=== PATIENT | male | born 1975 | race Caucasian/White ===

== ENCOUNTER 2018-11-18 11:02 | Emergency (ER) | payer MEDICAID ==
[~2018-11-18] VITALS: Ht 177.8 cm; Wt 126.4 kg
[~2018-11-18 11:02] MED LIST: DOXY100T2 PO; HYDR-4383 PO; HYDR25TA4 PO; LISI-600 PO; OMEP20CA10 PO; ONDA8TAB9 PO
[2018-11-18 11:08] VITALS: BP 158/103
== END 2018-11-18 12:25 | disposition home or self-care (01) ==
LOC: ER 11:03
DX: S91.322D Laceration with foreign body, left foot, subsequent encounter (principal); I10 Essential (primary) hypertension; E11.9 Type 2 diabetes mellitus without complications; F12.90 Cannabis use, unspecified, uncomplicated; Z88.0 Allergy status to penicillin; Z98.890 Other specified postprocedural states; Z79.899 Other long term (current) drug therapy; W45.8XXD Other foreign body or object entering through skin, subsequent encounter
CPT/HCPCS: 99282

== ENCOUNTER 2019-04-08 15:29 | Emergency (ER) | payer MEDICAID ==
[~2019-04-08] VITALS: Ht 177.8 cm; Wt 118.2 kg
[~2019-04-08 15:29] MED LIST changes: -OMEP20CA10 PO; +OMEP20CA11 PO
[2019-04-08 15:35] VITALS: BP 133/88
== END 2019-04-08 16:36 | disposition home or self-care (01) ==
LOC: ER 15:29
DX: S92.512A Displaced fracture of proximal phalanx of left lesser toe(s), initial encounter for closed fracture (principal); I10 Essential (primary) hypertension; E11.9 Type 2 diabetes mellitus without complications; F12.90 Cannabis use, unspecified, uncomplicated; Z98.890 Other specified postprocedural states; Z88.0 Allergy status to penicillin; Z79.899 Other long term (current) drug therapy; W22.8XXA Striking against or struck by other objects, initial encounter; Y93.89 Activity, other specified; Y92.89 Other specified places as the place of occurrence of the external cause; Y99.8 Other external cause status
CPT/HCPCS: 28515; 73660; 99284

== ENCOUNTER 2020-03-25 20:01 | Emergency (ER) | payer MEDICAID ==
[~2020-03-25] VITALS: Ht 177.8 cm; Wt 127.2 kg
[~2020-03-25 20:01] MED LIST changes: -OMEP20CA11 PO; +OMEP20CA15 PO
[2020-03-25 20:06] VITALS: BP 179/103
[2020-03-25 20:43] LABS: BASOPHILS % (AUTO) 0.4 % (0-1); EOSINOPHILS # (AUTO) 0.4 X10'3 (0-0.9); EOSINOPHILS % (AUTO) 4.2 % (0-6); HEMATOCRIT 42.3 % (42.0-52.0); HEMOGLOBIN 14.1 g/dl (14.0-17.9); LYMPHOCYTES # (AUTO) 2.4 X10'3 (1.1-4.8); LYMPHOCYTES % (AUTO) 24.4 % (21-51); MEAN CORPUSCULAR HEMOGLOBIN 29.7 PG (27.0-31.0); MEAN CORPUSCULAR HGB CONC 33.3 g/dL (33.0-36.5); MEAN CORPUSCULAR VOLUME 89.1 FL (78-98); MONOCYTES # (AUTO) 0.7 X10'3 (0-0.9); MONOCYTES % (AUTO) 6.9 % (2-12); NEUTROPHILS # (AUTO) 6.2 X10'3 (1.8-7.7); NEUTROPHILS % (AUTO) 64.1 % (42-75); PLATELET COUNT 218 X10'3 (140-440); RED BLOOD COUNT 4.75 X10'6 (4.70-6.10); RED CELL DISTRIBUTION WIDTH 13.4 % (11.5-14.5); WHITE BLOOD COUNT 9.7 X10'3 (4.5-11.0)
[2020-03-25 20:54] LABS: ALANINE AMINOTRANSFERASE 87 U/L (12-78); ALBUMIN 3.7 G/DL (3.4-5.0); ALKALINE PHOSPHATASE 89 IU/L (46-116); ANION GAP 10 (8-16); ASPARTATE AMINO TRANSFERASE 43 U/L (10-37); BILIRUBIN,TOTAL 0.3 MG/DL (0.1-1.0); BLOOD UREA NITROGEN 16 MG/DL (7-18); BUN/CREATININE RATIO 12.6 (5.4-32.0); CALCIUM 9.3 MG/DL (8.5-10.1); CHLORIDE 104 MMOL/L (99-107); CREATININE 1.27 MG/DL (0.60-1.10); GLUCOSE 183 MG/DL (70-104); POTASSIUM 3.8 MMOL/L (3.5-5.1); SODIUM 143 MMOL/L (135-145); TOTAL CARBON DIOXIDE 28.8 MMOL/L (24-32); TOTAL PROTEIN 7.4 G/DL (6.4-8.2); eGFR 61 ML/MIN
[2020-03-25] MEDS ORDERED: sucralfate 1gm/10ml UD suspension PO STA (21:06)
[2020-03-25] MEDS ORDERED: mag hydrox/Alum hydrox/simeth 30ml oral suspension PO ONE (21:10)
[2020-03-25] MEDS ORDERED: LIDOcaine Viscous 15ml cup MM ONE (21:10)
[2020-03-25] MEDS ORDERED: SUCR1TAB34 PO (21:41)
[2020-03-25] MEDS ORDERED: OMEP40CA13 PO (21:41)
== END 2020-03-25 22:09 | disposition home or self-care (01) ==
LOC: ER 20:02
DX: R07.89 Other chest pain (principal); K21.9 Gastro-esophageal reflux disease without esophagitis; R12 Heartburn; I10 Essential (primary) hypertension; E11.9 Type 2 diabetes mellitus without complications; F12.90 Cannabis use, unspecified, uncomplicated; Z98.890 Other specified postprocedural states; Z88.0 Allergy status to penicillin; Z79.899 Other long term (current) drug therapy
CPT/HCPCS: 36415; 71045; 80053; 84484; 85025; 93005; 99285

== ENCOUNTER 2023-06-15 18:55 | Emergency (ER) | payer MEDICAID ==
[~2023-06-15] VITALS: Ht 177.8 cm; Wt 113.6 kg
[~2023-06-15 18:55] MED LIST changes: -LISI-600 PO; +LISI20TA28 PO; +SUCR1TAB34 PO
[2023-06-15 19:14] VITALS: TEMP 98.5
[2023-06-15 19:32] LABS: BASOPHILS % (AUTO) 0.3 % (0-1); EOSINOPHILS # (AUTO) 0.2 X10'3 (0-0.9); EOSINOPHILS % (AUTO) 2.9 % (0-6); HEMOGLOBIN 14.8 g/dl (14.0-17.9); LYMPHOCYTES # (AUTO) 2.2 X10'3 (1.1-4.8); LYMPHOCYTES % (AUTO) 38.9 % (21-51); MEAN CORPUSCULAR HEMOGLOBIN 29.2 PG (27.0-31.0); MEAN CORPUSCULAR HGB CONC 33.7 g/dL (33.0-36.5); MEAN CORPUSCULAR VOLUME 86.7 FL (78-98); MEAN PLATELET VOLUME 8.4 FL (7.4-10.4); MONOCYTES # (AUTO) 0.4 X10'3 (0-0.9); MONOCYTES % (AUTO) 7.1 % (2-12); NEUTROPHILS # (AUTO) 2.9 X10'3 (1.8-7.7); NEUTROPHILS % (AUTO) 50.8 % (42-75); PLATELET COUNT 221 X10'3 (140-440); RED BLOOD COUNT 5.07 X10'6 (4.70-6.10); RED CELL DISTRIBUTION WIDTH 13.4 % (11.5-14.5); WHITE BLOOD COUNT 5.6 X10'3 (4.5-11.0)
[2023-06-15 19:39] LABS: ALANINE AMINOTRANSFERASE 42 U/L (12-78); ALBUMIN 3.9 G/DL (3.4-5.0); ALKALINE PHOSPHATASE 146 IU/L (46-116); ANION GAP 10 (8-16); ASPARTATE AMINO TRANSFERASE 18 U/L (10-37); BILIRUBIN,TOTAL 0.4 MG/DL (0.1-1.0); BLOOD UREA NITROGEN 14 MG/DL (7-18); CALCIUM 9.3 MG/DL (8.5-10.1); CHLORIDE 104 MMOL/L (99-107); GLUCOSE 251 MG/DL (70-104); POTASSIUM 3.5 MMOL/L (3.5-5.1); SODIUM 140 MMOL/L (135-145); TOTAL CARBON DIOXIDE 26.2 MMOL/L (24-32); TOTAL PROTEIN 7.8 G/DL (6.4-8.2); eCRCL 93 ML/MIN; eGFR 80 ML/MIN
[2023-06-15 19:46] LABS: PRO BRAIN NATRIURETIC PEPTIDE 31 PG/ML (0-125)
[2023-06-15 20:19] LABS: D-DIMER < 0.19 MG/L FEU (0-0.50)
[2023-06-15] MEDS ORDERED: normal saline 1000ml 1,000 ML IV ONE (20:35)
[2023-06-15] MEDS ORDERED: insulin regular, human 10 units/0.1 ml syringe IV ONE (20:35)
[2023-06-15 21:51] VITALS: BP 145/83; PULSE 75; RESP 14; O2SAT 98
== END 2023-06-15 21:52 | disposition home or self-care (01) ==
LOC: ER 18:56
DX: R00.2 Palpitations (principal); I10 Essential (primary) hypertension; E11.9 Type 2 diabetes mellitus without complications; F12.90 Cannabis use, unspecified, uncomplicated; Z88.0 Allergy status to penicillin; Z79.2 Long term (current) use of antibiotics; Z79.899 Other long term (current) drug therapy
CPT/HCPCS: 36415; 71045; 80053; 82948; 83880; 84484; 85025; 85379; 93005; 96361; 96374; 99285; J1815; J7030

== ENCOUNTER 2023-12-31 12:10 | Emergency (ER) | payer MEDICAID ==
[~2023-12-31] VITALS: Ht 177.8 cm; Wt 91.4 kg
[2023-12-31 12:59] LABS: BILIRUBIN,URINE NEGATIVE (Neg); CLARITY,URINE CLEAR (Clear); COLOR,URINE YELLOW (Yellow); GLUCOSE, URINE >=1000 mg/dl (Neg); KETONES,URINE NEGATIVE (Neg); LEUKOCYTE ESTERASE ,URINE NEGATIVE (Neg); NITRITES, URINE NEGATIVE (Neg); OCCULT BLOOD,URINE NEGATIVE (Neg); PROTEIN,URINE NEGATIVE (Neg); UA COLLECTION TYPE CLN CATCH MIDSTREAM; UROBILINOGEN,URINE 0.2 E.U/dL (0.2-1.0)
[2023-12-31 13:01] LABS: BASOPHILS % (AUTO) 0.4 % (0-1); EOSINOPHILS # (AUTO) 0.2 X10'3 (0-0.9); HEMATOCRIT 48.1 % (42.0-52.0); HEMOGLOBIN 15.9 g/dl (14.0-17.9); LYMPHOCYTES # (AUTO) 1.9 X10'3 (1.1-4.8); LYMPHOCYTES % (AUTO) 31.2 % (21-51); MEAN CORPUSCULAR HEMOGLOBIN 28.2 PG (27.0-31.0); MEAN CORPUSCULAR VOLUME 85.6 FL (78-98); MEAN PLATELET VOLUME 8.2 FL (7.4-10.4); MONOCYTES # (AUTO) 0.3 X10'3 (0-0.9); MONOCYTES % (AUTO) 5.7 % (2-12); NEUTROPHILS # (AUTO) 3.6 X10'3 (1.8-7.7); NEUTROPHILS % (AUTO) 59.7 % (42-75); PLATELET COUNT 210 X10'3 (140-440); RED BLOOD COUNT 5.62 X10'6 (4.70-6.10); RED CELL DISTRIBUTION WIDTH 13.3 % (11.5-14.5); WHITE BLOOD COUNT 5.9 X10'3 (4.5-11.0)
[2023-12-31] MEDS: normal saline 1000ML IV soln IVB ONE (13:02)
[2023-12-31 13:04] LABS: SQUAMOUS EPITHELIAL CELL,UR FEW /LPF (FEW)
[2023-12-31 13:05] LABS: BACTERIA,URINE NONE SEEN /HPF (Neg); RBC,URINE 0-2 /HPF (0-2); WBC,URINE 0-4 /HPF (0-4)
[2023-12-31 13:36] LABS: ALBUMIN 3.7 G/DL (3.4-5.0); ALBUMIN/GLOBULIN RATIO 0.9 (1.1-1.5); ALKALINE PHOSPHATASE 115 IU/L (46-116); BILIRUBIN,DIRECT 0.2 MG/DL (0-0.3); LIPASE 55 U/L (16-77)
[2023-12-31 13:58] LABS: ALANINE AMINOTRANSFERASE 45 U/L (12-78); ANION GAP 10 (8-16); ASPARTATE AMINO TRANSFERASE 24 U/L (10-37); BILIRUBIN,TOTAL 0.6 MG/DL (0.1-1.0); BLOOD UREA NITROGEN 14 MG/DL (7-18); BUN/CREATININE RATIO 12.8 (10.0-20.0); CALCIUM 8.9 MG/DL (8.5-10.1); CHLORIDE 102 MMOL/L (99-107); CREATININE 1.09 MG/DL (0.60-1.10); GLUCOSE 285 MG/DL (70-104); POTASSIUM 3.7 MMOL/L (3.5-5.1); SODIUM 139 MMOL/L (135-145); TOTAL CARBON DIOXIDE 26.9 MMOL/L (24-32); eCRCL 85 ML/MIN; eGFR 72 ML/MIN
[2023-12-31] MEDS ORDERED: iohexol 350MG/ML 100ml bottle IV ONE (14:13)
[2023-12-31 16:21] VITALS: BP 186/122; PULSE 71; RESP 17; TEMP 98; O2SAT 97
== END 2023-12-31 16:24 | disposition home or self-care (01) ==
LOC: ER 12:11
DX: K59.00 Constipation, unspecified (principal); R10.9 Unspecified abdominal pain; I10 Essential (primary) hypertension; E11.9 Type 2 diabetes mellitus without complications; F12.90 Cannabis use, unspecified, uncomplicated; Z88.0 Allergy status to penicillin; Z79.2 Long term (current) use of antibiotics; Z79.899 Other long term (current) drug therapy
CPT/HCPCS: 36415; 74178; 80048; 80076; 81001; 83690; 85025; 96360; 99285; J3490; J7030; Q9967

== ENCOUNTER 2024-01-21 17:25 | Inpatient (IN) | payer MEDICAID ==
[~2024-01-21] VITALS: Ht 177.8 cm; Wt 112.8 kg
[2024-01-21 18:05] LABS: BASOPHILS % (AUTO) 0.5 % (0-1); EOSINOPHILS # (AUTO) 0.1 X10'3 (0-0.9); EOSINOPHILS % (AUTO) 2.7 % (0-6); HEMOGLOBIN 15.6 g/dl (14.0-17.9); LYMPHOCYTES % (AUTO) 35.6 % (21-51); MEAN CORPUSCULAR HEMOGLOBIN 28.8 PG (27.0-31.0); MEAN CORPUSCULAR HGB CONC 33.2 g/dL (33.0-36.5); MEAN CORPUSCULAR VOLUME 86.7 FL (78-98); MEAN PLATELET VOLUME 8.5 FL (7.4-10.4); MONOCYTES # (AUTO) 0.4 X10'3 (0-0.9); NEUTROPHILS # (AUTO) 2.9 X10'3 (1.8-7.7); NEUTROPHILS % (AUTO) 53.2 % (42-75); PLATELET COUNT 231 X10'3 (140-440); RED BLOOD COUNT 5.42 X10'6 (4.70-6.10); RED CELL DISTRIBUTION WIDTH 13.4 % (11.5-14.5); WHITE BLOOD COUNT 5.5 X10'3 (4.5-11.0)
[2024-01-21 18:24] LABS: ALANINE AMINOTRANSFERASE 36 U/L (12-78); ALBUMIN 3.7 G/DL (3.4-5.0); ALBUMIN/GLOBULIN RATIO 0.9 (1.1-1.5); ALKALINE PHOSPHATASE 95 IU/L (46-116); ANION GAP 11 (8-16); ASPARTATE AMINO TRANSFERASE 19 U/L (10-37); BILIRUBIN,TOTAL 0.6 MG/DL (0.1-1.0); BLOOD UREA NITROGEN 14 MG/DL (7-18); BUN/CREATININE RATIO 15.9 (10.0-20.0); CALCIUM 9.3 MG/DL (8.5-10.1); CHLORIDE 105 MMOL/L (99-107); CREATININE 0.88 MG/DL (0.60-1.10); GLUCOSE 155 MG/DL (70-104); POTASSIUM 3.6 MMOL/L (3.5-5.1); SODIUM 142 MMOL/L (135-145); TOTAL CARBON DIOXIDE 26.4 MMOL/L (24-32); TOTAL PROTEIN 7.9 G/DL (6.4-8.2); eCRCL 105 ML/MIN; eGFR > 90 ML/MIN
[2024-01-21 18:35] LABS: PRO BRAIN NATRIURETIC PEPTIDE 255 PG/ML (0-125)
[2024-01-21] MEDS: aspirin 325mg tablet PO ONE (18:53)
[2024-01-21] MEDS ORDERED: magnesium 2GM in 50ml NS 50 ML IV PRN (23:25)
[2024-01-21] MEDS ORDERED: magnesium hydroxide 30ml (MOM) UD suspension PO PRN (23:25)
[2024-01-21] MEDS ORDERED: potassium Cl 20 mEq SR tablet PO PRN ×2 (23:25)
[2024-01-21] MEDS ORDERED: mag hydrox/Alum hydrox/simeth 30ml oral suspension PO PRN (23:25)
[2024-01-21] MEDS ORDERED: potassium Cl 40MEQ/1/2NS 520ml 520 ML IV PRN (23:25)
[2024-01-21] MEDS ORDERED: ondansetron/PF 4mg/2ml inj IV PRN (23:25)
[2024-01-21] MEDS ORDERED: acetaminophen 325mg tablet PO PRN (23:25)
[2024-01-21] MEDS ORDERED: magnesium Cl slow-release 64mg tablet PO PRN (23:25)
[2024-01-21] MEDS ORDERED: magnesium 4gm in 100ml NS 100 ML IV PRN (23:25)
[2024-01-22 05:28] VITALS: BP 165/104; PULSE 73; RESP 16; TEMP 98.3; O2SAT 96
[2024-01-22 05:51] VITALS: BP 142/88
[2024-01-22 06:00] LABS: BASOPHILS % (AUTO) 0.3 % (0-1); EOSINOPHILS # (AUTO) 0.3 X10'3 (0-0.9); EOSINOPHILS % (AUTO) 3.9 % (0-6); HEMATOCRIT 45.9 % (42.0-52.0); HEMOGLOBIN 15.4 g/dl (14.0-17.9); LYMPHOCYTES % (AUTO) 31.4 % (21-51); MEAN CORPUSCULAR HEMOGLOBIN 28.9 PG (27.0-31.0); MEAN CORPUSCULAR HGB CONC 33.6 g/dL (33.0-36.5); MEAN PLATELET VOLUME 8.3 FL (7.4-10.4); MONOCYTES # (AUTO) 0.6 X10'3 (0-0.9); MONOCYTES % (AUTO) 9.3 % (2-12); NEUTROPHILS # (AUTO) 3.5 X10'3 (1.8-7.7); NEUTROPHILS % (AUTO) 55.1 % (42-75); PLATELET COUNT 214 X10'3 (140-440); RED BLOOD COUNT 5.34 X10'6 (4.70-6.10); RED CELL DISTRIBUTION WIDTH 13.5 % (11.5-14.5); WHITE BLOOD COUNT 6.4 X10'3 (4.5-11.0)
[2024-01-22 06:08] LABS: ALANINE AMINOTRANSFERASE 42 U/L (12-78); ALBUMIN 3.6 G/DL (3.4-5.0); ALBUMIN/GLOBULIN RATIO 0.9 (1.1-1.5); ALKALINE PHOSPHATASE 93 IU/L (46-116); ANION GAP 11 (8-16); ASPARTATE AMINO TRANSFERASE 26 U/L (10-37); BILIRUBIN,TOTAL 0.5 MG/DL (0.1-1.0); BLOOD UREA NITROGEN 15 MG/DL (7-18); BUN/CREATININE RATIO 14.7 (10.0-20.0); CALCIUM 8.9 MG/DL (8.5-10.1); CHLORIDE 105 MMOL/L (99-107); CREATININE 1.02 MG/DL (0.60-1.10); GLUCOSE 161 MG/DL (70-104); MAGNESIUM 2.1 MG/DL (1.5-2.4); PHOSPHORUS 4.6 MG/DL (2.3-4.5); SODIUM 142 MMOL/L (135-145); TOTAL CARBON DIOXIDE 26.3 MMOL/L (24-32); TOTAL PROTEIN 7.7 G/DL (6.4-8.2); eCRCL 90 ML/MIN; eGFR 78 ML/MIN
[2024-01-22 06:16] LABS: POTASSIUM 3.9 MMOL/L (3.5-5.1)
[2024-01-22] MEDS: heparin, porcine 5000 units/ml vial SQ SCH (08:00)
[2024-01-22] MEDS: K and/or MAG REPLACEMENT MC SCH (08:00)
[2024-01-22] MEDS: docusate sod 100mg capsule PO SCH (08:00)
[2024-01-22 08:24] LABS: THYROID STIMULATING HORMONE 1.16 ulU/ml (0.34-4.50)
[2024-01-22 09:27] VITALS: BP_SYST 140; PULSE 72
[2024-01-22] MEDS: lisinopril 20mg tablet PO SCH (09:27)
[2024-01-22] MEDS: atorvastatin 20mg tablet PO SCH (09:27)
[2024-01-22] MEDS: HYDROchlorothiazide 25mg tablet PO SCH (09:27)
[2024-01-22] MEDS ORDERED: METF-436 PO ×2 (09:32)
[2024-01-22] MEDS ORDERED: EMPA25TA PO (12:25)
[2024-01-22] MEDS ORDERED: SEMA1PEN3 SUBCUT (12:25)
== END 2024-01-22 15:45 | disposition home or self-care (01) | DRG 201 ==
LOC: ER 17:27 → UNDOADMOB 23:28 → ED HOLD 23:28 → OBSVTOIN 23:58 → ED HOLD 23:58 → EDBEDREQ 01-22 04:31 → ED HOLD 01-22 05:15 → PCU 3S 01-22 05:15
PROVIDERS: ADMIT Student in an Organized Health Care Education/Training Program; ATTEND Internal Medicine
DX: I48.0 Paroxysmal atrial fibrillation (principal); I11.0 Hypertensive heart disease with heart failure; I50.9 Heart failure, unspecified; E11.9 Type 2 diabetes mellitus without complications; G47.33 Obstructive sleep apnea (adult) (pediatric); K21.9 Gastro-esophageal reflux disease without esophagitis; E78.00 Pure hypercholesterolemia, unspecified; Z79.899 Other long term (current) drug therapy
CPT/HCPCS: 36415; 71045; 80053; 83735; 83880; 84100; 84443; 84484; 85025; 87081; 93005; 99285; G0378; J1644

== ENCOUNTER 2024-08-14 16:10 | Emergency (ER) | payer MEDICAID ==
[~2024-08-14] VITALS: Ht 177.8 cm; Wt 109.0 kg
[~2024-08-14 16:10] MED LIST changes: -DOXY100T2 PO; +EMPA25TA PO; -HYDR-4383 PO; +METF-436 PO; -ONDA8TAB9 PO; +SEMA1PEN3 SUBCUT
[2024-08-14 17:04] LABS: ALBUMIN 3.8 G/DL (3.4-5.0); ANION GAP 5 (8-16); BLOOD UREA NITROGEN 16 MG/DL (7-18); BUN/CREATININE RATIO 12.5 (10.0-20.0); CALCIUM 8.8 MG/DL (8.5-10.1); CHLORIDE 104 MMOL/L (99-107); CREATININE 1.28 MG/DL (0.60-1.10); GLUCOSE 136 MG/DL (70-104); POTASSIUM 3.7 MMOL/L (3.5-5.1); SODIUM 138 MMOL/L (135-145); TOTAL CARBON DIOXIDE 29.2 MMOL/L (24-32); eCRCL 72 ML/MIN; eGFR 60 ML/MIN
[2024-08-14 17:08] LABS: APTT 27 SECONDS (22-32); PROTHROMBIN TIME 10.2 SECONDS (9.0-12.0)
[2024-08-14 17:09] LABS: BASOPHILS % (AUTO) 0.2 % (0-1); EOSINOPHILS # (AUTO) 0.1 X10'3 (0-0.9); EOSINOPHILS % (AUTO) 1.8 % (0-6); HEMATOCRIT 43.4 % (42.0-52.0); HEMOGLOBIN 14.2 g/dl (14.0-17.9); LYMPHOCYTES % (AUTO) 27.7 % (21-51); MEAN CORPUSCULAR HEMOGLOBIN 28.4 PG (27.0-31.0); MEAN CORPUSCULAR HGB CONC 32.8 g/dL (33.0-36.5); MEAN CORPUSCULAR VOLUME 86.5 FL (78-98); MEAN PLATELET VOLUME 7.6 FL (7.4-10.4); MONOCYTES # (AUTO) 0.5 X10'3 (0-0.9); MONOCYTES % (AUTO) 6.4 % (2-12); NEUTROPHILS # (AUTO) 4.6 X10'3 (1.8-7.7); NEUTROPHILS % (AUTO) 63.9 % (42-75); PLATELET COUNT 253 X10'3 (140-440); RED BLOOD COUNT 5.02 X10'6 (4.70-6.10); RED CELL DISTRIBUTION WIDTH 13.4 % (11.5-14.5); WHITE BLOOD COUNT 7.1 X10'3 (4.5-11.0)
[2024-08-14] MEDS ORDERED: valacyclovir 500mg tablet PO SCH (17:10)
[2024-08-14] MEDS ORDERED: prednisone 10mg tablet PO SCH (17:15)
[2024-08-14] MEDS ORDERED: VALA100031 PO (17:16)
[2024-08-14] MEDS ORDERED: PRED20TA PO (17:16)
[2024-08-14] MEDS: prednisone 10mg tablet PO ONE (18:00)
[2024-08-14] MEDS: valacyclovir 500mg tablet PO ONE (18:01)
[2024-08-14 18:08] VITALS: BP 145/94; PULSE 62; RESP 14; TEMP 98.1; O2SAT 95
== END 2024-08-14 18:10 | disposition home or self-care (01) ==
LOC: ER 16:11
DX: G51.0 Bell's palsy (principal); E78.00 Pure hypercholesterolemia, unspecified; I10 Essential (primary) hypertension; E11.9 Type 2 diabetes mellitus without complications; M19.90 Unspecified osteoarthritis, unspecified site; F12.90 Cannabis use, unspecified, uncomplicated; R79.1 Abnormal coagulation profile; Z88.0 Allergy status to penicillin; Z79.899 Other long term (current) drug therapy
CPT/HCPCS: 36415; 70450; 71045; 80048; 85025; 85610; 85730; 86885; 86900; 86901; 93005; 99285; J7512

== ENCOUNTER 2025-07-28 10:28 | Outpatient (CLI) | payer MEDICAID ==
[~2025-07-28 10:28] MED LIST changes: +VALA100031 PO
[2025-07-28 11:09] LABS: MEAN PLATELET VOLUME 8.1 FL (7.4-10.4); RED CELL DISTRIBUTION WIDTH 14.0 % (11.5-14.5)
[2025-07-28 11:44] LABS: APTT 28 SECONDS (22-32); INR 1.0 INR
[2025-07-28 11:55] LABS: CHOL/HDL RATIO 4.1 (0.00-4.99); CREATININE 0.91 MG/DL (0.60-1.10); LDL CHOLESTEROL 119 MG/DL (50-100); TOTAL CARBON DIOXIDE 28.1 MMOL/L (24-32); eGFR 88 ML/MIN
== END 2025-07-28 23:59 | disposition home or self-care (01) ==
LOC: LAB 10:28 → EDSTATUS 08-01 15:30
PROVIDERS: ATTEND Student in an Organized Health Care Education/Training Program
DX: Z01.818 Encounter for other preprocedural examination (principal); I48.91 Unspecified atrial fibrillation; I10 Essential (primary) hypertension; E78.5 Hyperlipidemia, unspecified
CPT/HCPCS: 36415; 80048; 80061; 85025; 85610; 85730

== ENCOUNTER 2025-08-29 10:10 | Day surgery (SDC) | payer MEDICAID ==
[2025-08-23 10:03] LABS: MEAN PLATELET VOLUME 7.8 FL (7.4-10.4); RED CELL DISTRIBUTION WIDTH 13.2 % (11.5-14.5)
[2025-08-23 10:13] LABS: CREATININE 0.84 MG/DL (0.60-1.10); TOTAL CARBON DIOXIDE 27.4 MMOL/L (24-32); eGFR > 90 ML/MIN
[2025-08-23 10:17] LABS: APTT 29 SECONDS (22-32); INR 1.0 INR
[~2025-08-29] VITALS: Ht 177.8 cm; Wt 110.3 kg
[~2025-08-29 10:10] MED LIST changes: +AMLO1CAP10 PO; +APIX5TAB3 PO; -EMPA25TA PO; +METF-1203 PO; -METF-436 PO; +METF-900 PO; -SEMA1PEN3 SUBCUT; +SOTA80TA73 PO; -SUCR1TAB34 PO; -VALA100031 PO
[2025-08-29 10:30] VITALS: BP 147/111; PULSE 86; RESP 15; TEMP 97.9
[2025-08-29] MEDS ORDERED: MIDAZolam 1mg/ml 10ml vial IV ONE (10:35)
[2025-08-29] MEDS: normal saline 1000ml 1,000 ML IV SCH (10:35)
[2025-08-29] MEDS ORDERED: fentaNYL/PF 50MCG/1 ML 2ML syringe IV ONE (10:35)
[2025-08-29 11:00] VITALS: RESP 15; O2SAT 96
[2025-08-29] MEDS ORDERED: fentaNYL/PF 50MCG/1 ML 2ML syringe ONE (12:17)
[2025-08-29] MEDS ORDERED: midazolam 1 mg/ML 2ml injection ONE ×2 (12:17→12:42)
[2025-08-29] MEDS ORDERED: atropine 0.1mg/ml 10ml syringe ONE (12:17)
[2025-08-29] MEDS ORDERED: amiodarone 50MG/ML inj IV ONE (12:17)
[2025-08-29 13:10] VITALS: BP 118/85; PULSE 68; RESP 13; O2SAT 95
[2025-08-29 13:20] VITALS: BP 119/88; PULSE 67; RESP 15; O2SAT 95
--- NOTE | 2025-08-29 13:26 | ELECTROCARDIOGRAPH REPORT ---
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 ANGELINE Ford Measurements Intervals [place] Rate: 63 P: -21 HI: 169 QRS: -62 QRSD: 104 T: -8 QT: 422 QTc: 433 Interpretive Statements Sinus rhythm Left anterior fascicular block Abnormal R-wave progression, late transition Borderline T abnormalities, inferior leads Electronically Signed On 08-29-2025 17:33:[address] ANGELINE Ford Please click the below link to view image of tracing.
[2025-08-29 13:40] VITALS: BP 120/84; PULSE 65; RESP 15; O2SAT 94
--- NOTE | 2025-09-10 20:34 | CARDIOLOGY REPORT ---
DATE OF SERVICE: 08/29/2025 DICTATING PHYSICIAN: Benedicto Cintron MD DATE OF STUDY: 08/29/2025 NAME OF STUDY: Electrical cardioversion. PROCEDURE: The patient was brought to cardiac short stay where she was prepped in the usual manner. After gradual increments of Versed and fentanyl, and conscious sedation was obtained, the patient was cardioverted. The patient remained clinically and hemodynamically stable throughout the procedure. IMPRESSION: Successful electrical cardioversion to normal sinus rhythm without complication. Benedicto Cintron MD TID: [id number] RECEIPT: [id number] VICTOR M/ERICKA
== END 2025-08-29 13:40 | disposition home or self-care (01) ==
LOC: SSTAY O 10:10
PROVIDERS: ATTEND Student in an Organized Health Care Education/Training Program
DX: I48.91 Unspecified atrial fibrillation (principal); I44.4 Left anterior fascicular block; R94.31 Abnormal electrocardiogram [ECG] [EKG]; I10 Essential (primary) hypertension; E11.9 Type 2 diabetes mellitus without complications; E78.00 Pure hypercholesterolemia, unspecified; Z79.01 Long term (current) use of anticoagulants; Z79.899 Other long term (current) drug therapy; Z88.0 Allergy status to penicillin
CPT/HCPCS: 36415; 80048; 85025; 85610; 85730; 92960; 93005; 99152; J2250; J3010; J7030; J0282; J0461

== ENCOUNTER 2025-09-04 08:18 | Emergency (ER) | payer MEDICAID ==
[~2025-09-04] VITALS: Ht 177.8 cm; Wt 110.3 kg
[2025-09-04 08:37] LABS: MEAN PLATELET VOLUME 8.2 FL (7.4-10.4); RED CELL DISTRIBUTION WIDTH 13.0 % (11.5-14.5)
--- NOTE | 2025-09-04 08:49 | Physician Documentation ---
History of Present Illness ~ Chief Complaint: Chest Pain Stated Complaint: CP Time Seen by MD: 08:48 Primary Medical Doctor: Suzy Hernandez PA-C Mode of Arrival: Wheelchair HPI 49-year-old male presenting with chest pain and vomiting He tells me that he has been having episodes of intermittent vertigo that seems triggered by certain positions including head movements. He also has a history of paroxysmal atrial fibrillation and was recently cardioverted. He says that he woke up this morning with nausea and vomiting. He has had multiple episodes of vomiting. He reports that he had pain in his upper abdomen and lower central chest. He does take Prilosec. He also reports having diarrhea but states this is chronic and unchanged No fevers or chills. No current chest pain. No significant shortness of breath or productive cough. No new leg pain or swelling. He came in today because during his episodes of vomiting and dizziness, he felt like his heart was racing and was worried that he was having a heart attack or other heart problem. Medication Reconciliation Allergies: Coded Allergies: Penicillins (Verified Allergy, Unknown, 08/14/24) Scheduled Amlodipine Besylate/Benazepril (Amlodipine-Benazepril 10-20 Mg), 1 TAB PO DAILY, (Reported) Apixaban (Eliquis), 1 TAB PO BID, (Reported) Hydrochlorothiazide (Hydrochlorothiazide), 1 TAB PO DAILY, (Reported) Lisinopril (Lisinopril), 1 TAB PO DAILY, (Reported) Metformin HCl (Metformin HCl), 2 TAB PO am, (Reported) Metformin Hcl* (Metformin ER*), 1 TAB PO Evening, (Reported) Omeprazole (Omeprazole), 1 CAP PO DAILY, (Reported) Sotalol Hcl* (Betapace*), 1 TAB PO BID, (Reported) Scheduled PRN Meclizine HCl (Meclizine HCl), 1 TAB PO Q8H PRN for dizziness/vertigo ONDANSETRON ODT 4mg tablet (Ondansetron Odt), 1 TAB PO Q6H PRN PRN for nausea/vomiting Discontinued Medications Empagliflozin (Jardiance), 1 TAB PO DAILY Discontinued Reason: patient no longer taking Metformin Hcl (Metformin Hcl), 1,000 MG PO DAILY Discontinued Reason: patient no longer taking Metformin Hcl (Metformin Hcl), 500 MG PO HS Discontinued Reason: patient no longer taking Semaglutide (Ozempic), 1 MG SUBCUT Q7D Discontinued Reason: patient no longer taking Sucralfate (Carafate), 1 TAB PO ACHS Discontinued Reason: patient no longer taking Valacyclovir HCl (Valacyclovir), 1 TABLET PO TID Discontinued Reason: patient no longer taking Past Medical History Past Medical History: High Cholesterol, Hypertension, Diabetes, Osteoarthritis Past Surgical History: orthopedic surgeries Alcohol Use: None Drug Use: marijuana Lives with: Family Lives In: Home Occupation: employed Review of Systems Constitutional: Denies: fever Cardiovascular: Reports: chest pain Gastrointestinal: Reports: abdominal pain, nausea, vomiting, diarrhea Physical Exam Vital Signs: Source: Oral, Heart Rate: 80, Respiratory Rate: 20, BP: 130/77, Pulse Oximetry: 94, Weight: 110.300 Oxygen Flow Rate: 0 Physical Exam General: This is a pleasant and overall well-appearing young man, family at bedside HEENT: Atraumatic, oropharynx is moist Heart: Regular rate and rhythm, appears sinus rhythm on the monitor, strong lef t radial pulse Lungs: Clear breath sounds bilateral, normal work of breathing, normal oxygen saturation on room air Abdomen: Soft, nondistended, mild discomfort on palpation in the epigastric region, otherwise nontender, no rebound or guarding Extremities: Warm and well-perfused, no significant edema or calf tenderness Neuro: Alert and oriented Psychiatric: Calm and cooperative with exam Progress Results/Orders Results/Orders Orders - RAFAEL GRIGSBY MD Chest,Single View (09/04/25 08:21) Monitor (09/04/25 08:21) Saline Lock (09/04/25 08:21) Oxygen (09/04/25 08:21) General Nursing Order (09/04/25 ) Completed Orders - RAFAEL GRIGSBY MD Chest,Single View (09/04/25 08:21) Cbc/Diff (09/04/25 08:21) PBNP (09/04/25 08:21) Electrocardiogram (09/04/25 08:21) Hs Troponin I W Calculations (09/04/25 08:21) Hs Troponin I W Calculations (09/04/25 10:21) CMP (09/04/25 08:21) Ondansetron Inj. (Zofran 4mg/2ml Vial) (09/04/25 09:00) Normal Saline 1000ml (0.9% Sodium Chlori (09/04/25 09:00) Mag & Alum Hydrox/Simeth Susp (Maalox Or (09/04/25 09:00) Pantoprazole 40mg Iv (Protonix 40mg Iv) (09/04/25 09:00) Lipase (09/04/25 08:27) Vital Signs 09/04/25 09/04/25 09/04/25 09/04/25 08:21 08:28 08:30 10:24 Pulse 89 80 90 Resp 20 16 20 20 B/P (MAP) 136/99 130/77 (94) 133/74 (93) Pulse Ox 95 94 97 O2 Flow Rate 0 0 0 09/04/25 11:08 Temp 97.9 Resp 15 B/P (MAP) 151/87 Pulse Ox 95 Laboratory Tests Test 09/04/25 08:27 09/04/25 10:11 White Blood Count 11.1 H Red Blood Count 5.86 Hemoglobin 16.8 Hematocrit 50.0 Mean Corpuscular Volume 85.3 Mean Corpuscular Hemoglobin 28.7 Mean Corpuscular Hemoglobin Concent 33.7 Red Cell Distribution Width 13.0 Platelet Count 244 Mean Platelet Volume 8.2 Neutrophils (%) (Auto) 87.5 H Lymphocytes (%) (Auto) 7.6 L Monocytes (%) (Auto) 3.6 Eosinophils (%) (Auto) 1.1 Basophils (%) (Auto) 0.2 Neutrophils # (Auto) 9.7 H Lymphocytes # (Auto) 0.8 L Monocytes # (Auto) 0.4 Eosinophils # (Auto) 0.1 Basophils # (Auto) 0.0 CBC Comment Sodium Level 139 Potassium Level 4.3 Chloride Level 105 Carbon Dioxide Level 22.0 L Anion Gap 12 Blood Urea Nitrogen 20 H Creatinine 0.95 Estimated GFR/1.73 m2 84 BUN/Creatinine Ratio 21.1 H Glucose Level 215 H Calcium Level 9.0 Total Bilirubin 1.1 H Aspartate Amino Transf (AST/SGOT) 19 Alanine Aminotransferase (ALT/SGPT) 37 Alkaline Phosphatase 91 Troponin I High Sensitivity 4 < 4 L Pro-B-Type Natriuretic Peptide 513 H Total Protein 8.2 Albumin 4.1 Globulin 4.1 Albumin/Globulin Ratio 1.0 L Lipase 25 Chemistry Comments Troponin I High Sens Percent Delta Troponin I Hi Sens Absolute Change EKG/XRAY/CT/US/VASC/MRI EKG : Additional Comment I personally interpreted the EKG and this shows: No STEMI, no acute ischemic changes, sinus rhythm Chest X-Ray : Additional Comments I personally interpreted the x-ray, and it shows: No pulmonary edema, mediastinal widening, or focal consolidation Heart Score: Heart Score Response (Comments) Value History Slightly Suspicious 0 EKG Normal 0 Age 45-64 1 Risk Factors 1 or 2 risk factors 1 Troponin Normal limit 0 Total 2 Medical Decision Making Additional information obtaine: family Findings Further information obtained from the family Heart Score: 2 Differential Dx:Considerations: Include: angina, aortic dissection, chest wall pain, cholelithiasis, CHF, costochondritis, esophageal reflux/spasm, gastritis, myocardial infarction, pancreatitis Additional Information The patient presents with multiple symptoms including intermittent vertigo, nausea and vomiting, and chest/abdominal discomfort. By time of my evaluation he is feeling somewhat better. His symptoms seem more likely related to his stomach and less likely related to his heart currently. He is in normal sinus rhythm. EKG without ischemic changes. Chest x-ray normal. Labs unremarkable including 2 normal troponins. After nausea and stomach medications, he did feel much improved. Overall, his symptoms seem most likely consistent with positional vertigo and gastritis. He will be discharged home with meclizine and nausea medications. He will follow up with his primary doctor, and return precautions were given. Departure Time of Disposition: 10:56 Disposition: 01 HOME / SELF CARE / HOMELESS Impression: Primary Impression: Nausea and vomiting Condition: Improved Discharge Instructions: Benign Positional Vertigo, Nausea and Vomiting, Adult Referrals: NO PRIMARY CARE PROVIDER (PCP) Prescriptions Meclizine HCl (Meclizine HCl) 25 Mg Tablet 1 TAB PO Q8H PRN for dizziness/vertigo for 30 Days, #90 TAB Prov: RAFAEL GRIGSBY MD 09/04/25 ONDANSETRON ODT 4mg tablet (ONDANSETRON ODT) 4 Mg Tab.rapdis 1 TAB PO Q6H PRN PRN for nausea/vomiting for 4 Days, #16 TAB 1 Refill Prov: RAFAEL GRIGSBY MD 09/04/25 Education Educated: Patient Educated regarding: diagnosis, treatment, need for follow up Signature Scribe Signature: na Attestation: RAFAEL Lara MD Sep 04, 2025 08:48
--- NOTE | 2025-09-04 08:52 | RADIOLOGY REPORT ---
CHEST RADIOGRAPH Indication: CP Technique: Single frontal view of the chest was obtained COMPARISON: DI CHEST,SINGLE VIEW on DOS: 08/14/24, DI CHEST,SINGLE VIEW on DOS: 01/21/24, DI CHEST,SINGLE VIEW on DOS: 06/15/23, CHEST,SINGLE VIEW on DOS: 03/25/20 FINDINGS: Lines and Tubes: None Lungs: Clear Pleura: No effusion. No pneumothorax. Cardiomediastinal contours: Unremarkable Bones: Unremarkable IMPRESSION: No acute disease.
[2025-09-04 08:56] LABS: CREATININE 0.95 MG/DL (0.60-1.10); TOTAL CARBON DIOXIDE 22.0 MMOL/L (24-32); eCRCL 96 ML/MIN; eGFR 84 ML/MIN
[2025-09-04 09:02] LABS: PRO BRAIN NATRIURETIC PEPTIDE 513 PG/ML (0-125)
[2025-09-04] MEDS: normal saline 1000ml 1,000 ML IV ONE (09:10)
[2025-09-04] MEDS: mag hydrox/Alum hydrox/simeth 30ml oral suspension PO ONE (09:10)
[2025-09-04] MEDS: ondansetron/PF 4mg/2ml inj IV ONE (09:10)
[2025-09-04 10:24] VITALS: PULSE 90
[2025-09-04] MEDS ORDERED: ONDA-243 PO (10:59)
[2025-09-04] MEDS ORDERED: MECL-302 PO (10:59)
[2025-09-04 11:08] VITALS: BP 151/87; RESP 15; TEMP 97.9; O2SAT 95
--- NOTE | 2025-09-04 16:19 | ELECTROCARDIOGRAPH REPORT ---
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 ANGELINE Ford Measurements Intervals [place] Rate: 89 P: 10 WI: 152 QRS: -79 QRSD: 99 T: 4 QT: 353 QTc: 430 Interpretive Statements Sinus rhythm Left anterior fascicular block Abnormal R-wave progression, late transition Electronically Signed On 09-05-2025 18:41:[address] ANGELINE Ford Please click the below link to view image of tracing.
== END 2025-09-04 11:14 | disposition home or self-care (01) ==
LOC: ER 08:19
DX: R11.2 Nausea with vomiting, unspecified (principal); R07.9 Chest pain, unspecified; E11.9 Type 2 diabetes mellitus without complications; E78.00 Pure hypercholesterolemia, unspecified; I10 Essential (primary) hypertension; I25.2 Old myocardial infarction; M19.90 Unspecified osteoarthritis, unspecified site; F12.90 Cannabis use, unspecified, uncomplicated; Z88.0 Allergy status to penicillin; Z79.899 Other long term (current) drug therapy; Z98.890 Other specified postprocedural states
CPT/HCPCS: 36415; 71045; 80053; 83690; 83880; 84484; 85025; 93005; 96365; 96375; 99285; J2405; J2470; J7030